=== PATIENT | male | born 1995 | race Caucasian/White ===

== ENCOUNTER 2020-10-01 09:12 | Emergency (ER) | payer BC ==
[2020-10-01 09:27] VITALS: RESP 18; TEMP 99.2
--- NOTE | 2020-10-01 09:54 | ED ---
General Adult HPI - General Chief complaint: Psychiatric Symptoms Stated complaint: anxiety Time Seen by Provider: 10/01/20 09:29 Source: patient, RN notes reviewed Mode of arrival: ambulatory Limitations: no limitations - History of Present Illness Initial comments: Patient is a pleasant 24-year-old male presenting to the emergency Department with anxiety. Patient started taking a supplement called phenbut that he ordered online. Patient feels this is making his symptoms worse and also feels he is down regulating and coming off withdrawal for this. Patient admits to feeling anxious. Patient does have history of problems with anxiety and depression. Patient also feels depressed. No suicidal thoughts. Patient does have racing thoughts and does feel somewhat. However feels somewhat better now that he is in the hospital. Patient did not sleep well last night - Related Data Home Medications Medication Instructions Recorded Confirmed Methadone HCl [Dolophine HCl] 120 mg PO DAILY@1800 10/01/20 10/01/20 Phenibut 250mg 0.5 - 1 cap PO DAILY PRN 10/01/20 10/01/20 Previous Rx's Medication Instructions Recorded hydrOXYzine pamoate [Vistaril] 25 mg PO TID PRN #10 cap 10/01/20 Allergies Allergy/AdvReac Type Severity Reaction Status Date / Time No Known Allergies Allergy Verified 10/01/20 10:48 Review of Systems ROS Statement: Those systems with pertinent positive or pertinent negative responses have been documented in the HPI. ROS Other: All systems not noted in ROS Statement are negative. Constitutional: Denies: fever Eyes: Denies: eye pain ENT: Denies: ear pain Respiratory: Denies: cough Cardiovascular: Denies: chest pain Endocrine: Denies: fatigue Gastrointestinal: Denies: abdominal pain Genitourinary: Denies: dysuria Musculoskeletal: Denies: back pain Skin: Denies: rash Neurological: Denies: weakness Psychiatric: Reports: anxiety, depression Past Medical History Past Surgical History: Orthopedic Surgery Past Psychological History: Anxiety, Bipolar, Depression, Schizophrenia Smoking Status: Vaper Past Alcohol Use History: None Reported Past Drug Use History: Marijuana General Exam Limitations: no limitations General appearance: alert, in no apparent distress Head exam: Present: normocephalic Eye exam: Present: normal appearance Neck exam: Present: normal inspection Respiratory exam: Present: normal lung sounds bilaterally Cardiovascular Exam: Present: regular rate, normal rhythm GI/Abdominal exam: Present: soft. Absent: tenderness Extremities exam: Present: normal inspection Neurological exam: Present: alert Psychiatric exam: Present: normal affect, normal mood Skin exam: Present: normal color Course Vital Signs 10/01/20 09:21 Temperature 99.2 F Pulse Rate 115 H Respiratory 18 Rate Blood Pressure 168/85 O2 Sat by Pulse 98 Oximetry Medical Decision Making - Medical Decision Making Patient was seen by mental health services with plan for discharge. P sychiatrist did recommend Vistaril 25 mg every 8 hours for the next couple of days. Patient reevaluated and receptive to plan. Patient advised close follow- up and only take what is prescribed to him. - Lab Data Lab Results 10/01/20 Range/Units 10:05 Urine Opiates Screen Not Detected (NotDetected) Ur Oxycodone Screen Not Detected (NotDetected) Urine Methadone Screen Detected H (NotDetected) Ur Propoxyphene Screen Not Detected (NotDetected) Ur Barbiturates Screen Not Detected (NotDetected) U Tricyclic Antidepress Not Detected (NotDetected) Ur Phencyclidine Scrn Not Detected (NotDetected) Ur Amphetamines Screen Not Detected (NotDetected) U Methamphetamines Scrn Not Detected (NotDetected) U Benzodiazepines Scrn Not Detected (NotDetected) Urine Cocaine Screen Not Detected (NotDetected) U Marijuana (THC) Screen Detected H (NotDetected) Disposition Clinical Impression: Acute anxiety Disposition: HOME SELF-CARE Condition: Stable Instructions (If sedation given, give patient instructions): Generalized Anxiety Disorder (ED) Additional Instructions: Avoid substances that are not prescribed to you. Please follow-up with primary care physician in the next day or 2 for recheck. Follow-up with mental health services as directed. Return for thoughts of self-harm, worsening symptoms or other concerns. Prescription sent to [facility] pharmacy Prescriptions: hydrOXYzine pamoate [Vistaril] 25 mg PO TID PRN #10 cap PRN Reason: Anxiety Is patient prescribed a controlled substance at d/c from ED?: No Referrals: Luis Manuel Thomason MD [Primary Care Provider] - 1-2 days Time of Disposition: 13:40
[2020-10-01 10:39] LABS: Amphetamine Screen,Urine Not Detected (NotDetected); Barbiturate Screen,Urine Not Detected (NotDetected); Benzodiazepines Screen,Urine Not Detected (NotDetected); Cocaine Screen,Urine Not Detected (NotDetected); Methadone Screen, Urine Detected (NotDetected); Opiate Screen,Urine Not Detected (NotDetected); Oxycodone Screen, Urine Not Detected (NotDetected); Phencyclidine Screen,Urine Not Detected (NotDetected); Tricyclic Antidepressant,Urine Not Detected (NotDetected); Urn Cannabinoid Scrn Detected (NotDetected)
[2020-10-01] MEDS ORDERED: LORazepam 1 MG TAB PO STA (13:15)
[2020-10-01 13:50] VITALS: BP 122/72; PULSE 105
== END 2020-10-01 14:00 | disposition home or self-care (01) ==
LOC: EC 09:12
DX: F41.9 Anxiety disorder, unspecified (principal); F17.290 Nicotine dependence, other tobacco product, uncomplicated
CPT/HCPCS: 80306; 82075; 99284

== ENCOUNTER 2020-10-04 02:11 | Emergency (ER) | payer BC, OTHER ==
[2020-10-04] MEDS ORDERED: hydrOXYzine pamoate 25 MG CAP PO STA (02:27)
[2020-10-04] MEDS ORDERED: LORazepam 2 MG/ML INJ IM STA (02:27)
--- NOTE | 2020-10-04 02:38 | ED ---
General Adult HPI - General Chief complaint: Anxiety Stated complaint: Anxiety Time Seen by Provider: 10/04/20 02:27 Source: patient, family Mode of arrival: ambulatory Limitations: no limitations - History of Present Illness Initial comments: 24 year-old male patient presents to the emergency department today for evaluation of anxiety. Patient states that he was resting a movie this evening when he felt his heart start to race. He states that this made him very anxious so he began to panic. Patient was seen and evaluated here on Thursday for similar complaints. States he recently stopped taking a medication called Phenibut and he believes he is withdrawing from this. Patient states he was given a prescription for Vistaril to take 3 times a day upon discharge. He states this did seem to help but he ran out this evening. States that when he feels anxious he develops tightness to the left side of his chest and a tingly feeling on the left side of his body. Denies any other new medications. States he is eating and drinking. Denies any abdominal pain, nausea, or vomiting. Denies any dizziness or fainting. Patient does take methadone, states he is taking this for the last 5 years without relapses. Patient denies any recent rash, fever, chills, cough, abdominal pain, nausea, vomiting, diarrhea, constipation, back pain, hematuria, dysuria, urinary urgency, urinary frequency, headache, visual changes, or any other complaints. - Related Data Home Medications Medication Instructions Recorded Confirmed Methadone HCl [Dolophine HCl] 120 mg PO DAILY@1800 10/01/20 10/01/20 Phenibut 250mg 0.5 - 1 cap PO DAILY PRN 10/01/20 10/01/20 Previous Rx's Medication Instructions Recorded hydrOXYzine pamoate [Vistaril] 25 mg PO TID PRN #10 cap 10/01/20 hydrOXYzine pamoate [Vistaril] 25 mg PO TID PRN #21 capsule 10/04/20 Allergies Allergy/AdvReac Type Severity Reaction Status Date / Time No Known Allergies Allergy Verified 10/04/20 02:16 Review of Systems ROS Statement: Those systems with pertinent positive or pertinent negative responses have been documented in the HPI. ROS Other: All systems not noted in ROS Statement are negative. Past Medical History Additional Past Medical History / Comment(s): anxiety, depression History of Any Multi-Drug Resistant Organisms: None Reported Past Surgical History: Orthopedic Surgery Past Psychological History: Anxiety, Bipolar, Depression, Schizophrenia Smoking Status: Vaper Past Alcohol Use History: None Reported Past Drug Use History: Marijuana General Exam Limitations: no limitations General appearance: alert, in no apparent distress, other (Physical well- developed, well-nourished adult male patient in no acute distress. Patient does seem to be anxious. Vital signs upon presentation are temperature 98.8F, pulse 146, respirations 24, blood pressure 156/98, pulse ox 99% on room air.) Eye exam: Present: normal appearance, PERRL, EOMI. Absent: scleral icterus, conjunctival injection, periorbital swelling ENT exam: Present: normal exam, normal oropharynx, mucous membranes moist Respiratory exam: Present: normal lung sounds bilaterally. Absent: respiratory distress, wheezes, rales, rhonchi, stridor Cardiovascular Exam: Present: normal rhythm, tachycardia, normal heart sounds. Absent: systolic murmur, diastolic murmur, rubs, gallop, clicks GI/Abdominal exam: Present: soft, normal bowel sounds. Absent: distended, tenderness, guarding, rebound, rigid Neurological exam: Present: alert, oriented X3, CN II-XII intact Psychiatric exam: Present: anxious. Absent: homicidal ideation, suicidal ideation Skin exam: Present: warm, dry, intact, normal color. Absent: rash Course Vital Signs 10/04/20 02:12 Temperature 98.8 F Pulse Rate 146 H Respiratory 24 Rate Blood Pressure 156/98 O2 Sat by Pulse 99 Oximetry EKG Findings - EKG Comments: EKG Findings:: EKG obtained at 12 28 shows sinus tachycardia with a short AK interval. Ventricular rate is 128, AK interval 104, QRS duration 78, QT 402, QTc 586. No evidence of ST elevation or depression. Medical Decision Making - Medical Decision Making 24 year-old male patient presents into the emergency department today for evaluation of increased anxiety and racing heart. Physical examination did reveal soft nontender abdomen. Lungs are clear to auscultation. Did have some tachycardia. EKG showed sinus tachycardia. Patient is obviously anxious during exam. He was given IM dose of Ativan as well as an oral dose of Vistaril. Does have a history of long-standing anxiety and recently stopped taking a supplemental anxiety medication known as phenibut. We did discuss follow-up with psychiatry and primary care physician. He'll be recommended to both of these specialties. Return parameters were discussed in detail. He verbalizes understanding and agrees with this plan. Disposition Clinical Impression: Anxiety, Panic attack Disposition: HOME SELF-CARE Condition: Good Instructions (If sedation given, give patient instructions): Generalized Anxiety Disorder (ED) Additional Instructions: Call the psychiatrist office to make an appointment. Take the vistaril as directed. Follow up with a primary care physician for recheck as soon as possible. Return for any new, worsening, or concerning symptoms. Prescriptions: hydrOXYzine pamoate [Vistaril] 25 mg PO TID PRN #21 capsule PRN Reason: Anxiety Is patient prescribed a controlled substance at d/c from ED?: No Referrals: Luis Manuel Thomason MD [Primary Care Provider] - 1-2 days Israel Olson MD [Medical Doctor] - 1-2 days
[2020-10-04] MEDS ORDERED: ONDANSETRON ODT 4 MG TAB PO STA (02:41)
[2020-10-04 04:02] VITALS: BP 135/75; PULSE 104; RESP 19; TEMP 98.9
== END 2020-10-04 03:40 | disposition home or self-care (01) ==
LOC: EC 02:11
DX: F41.9 Anxiety disorder, unspecified (principal); F41.0 Panic disorder [episodic paroxysmal anxiety]; R00.0 Tachycardia, unspecified; F17.290 Nicotine dependence, other tobacco product, uncomplicated; Z79.891 Long term (current) use of opiate analgesic
CPT/HCPCS: 93005; 99283; 96372; J2060

== ENCOUNTER 2022-08-12 18:29 | Emergency (ER) | payer OTHER ==
[2022-08-12 18:55] VITALS: TEMP 98.2
[2022-08-12] MEDS ORDERED: SODIUM CHLORIDE 0.9% 1,000 ML IV STA (19:32)
--- NOTE | 2022-08-12 19:35 | ED ---
Abdominal Pain HPI - General Chief Complaint: Abdominal Pain Stated Complaint: stomach pain Time Seen by Provider: 08/12/22 19:20 Source: patient, RN notes reviewed Mode of arrival: EMS Limitations: no limitations - History of Present Illness Initial Comments: This is a pleasant 26-year-old male presents to the emergency department complaining of lower abdominal pain. Patient states this is sharp in nature, is also having pressure. Patient states he is having constipation. He states this is worsening. He got a small bowel movement this morning. Patient states he still is passing gas. Some nausea but no vomiting. No definitive fever. States he also ascertains that it hard to urinate. Patient does take methadone after having previous narcotic addiction. No other medications. Pain cramping in nature. Intermittent. No alleviating or exacerbating factors. Patient tried [id number] stool softeners with no relief. Patient also tried one fleets enema. No headache, no fever or chills, no changes in vision or hearing, no sore throat or difficulty with speech, no neck pain, no chest pain or shortness of breath, denies any blood in the stool. No dark tarry stools. No hematuria. No back pain. e, no nausea or vomiting, no changes in urination or bowel movements, no numbness or tingling, no extremity pain, no skin rashes or lesions. Past medical, surgical, social, and family history reviewed. MD Complaint: abdominal pain - Related Data Home Medications Medication Instructions Recorded Confirmed Methadone HCl [Dolophine HCl] 120 mg PO DAILY@1800 10/01/20 10/01/20 Phenibut 250mg 0.5 - 1 cap PO DAILY PRN 10/01/20 10/01/20 Previous Rx's Medication Instructions Recorded hydrOXYzine pamoate [Vistaril] 25 mg PO TID PRN #10 cap 10/01/20 hydrOXYzine pamoate [Vistaril] 25 mg PO TID PRN #21 capsule 10/04/20 Allergies Allergy/AdvReac Type Severity Reaction Status Date / Time No Known Allergies Allergy Verified 08/12/22 18:55 Review of Systems ROS Statement: Those systems with pertinent positive or pertinent negative responses have been documented in the HPI. ROS Other: All systems not noted in ROS Statement are negative. Past Medical History Additional Past Medical History / Comment(s): anxiety, depression, IBS History of Any Multi-Drug Resistant Organisms: None Reported Past Surgical History: Orthopedic Surgery Past Psychological History: Anxiety, Bipolar, Depression, Schizophrenia Smoking Status: Vaper Past Alcohol Use History: None Reported Past Drug Use History: Marijuana General Exam - General Exam Comments Initial Comments: Nontoxic appearing male in no acute distress at the time of seeing him. Normal capillary refill. No mottling. Vital signs reviewed Limitations: no limitations General appearance: alert, in no apparent distress Head exam: Present: atraumatic, normocephalic, normal inspection Eye exam: Present: normal appearance, PERRL, EOMI. Absent: scleral icterus, conjunctival injection, periorbital swelling ENT exam: Present: normal exam, mucous membranes moist Neck exam: Present: normal inspection. Absent: tenderness, meningismus, lymphadenopathy Respiratory exam: Present: normal lung sounds bilaterally. Absent: respiratory distress, wheezes, rales, rhonchi, stridor Cardiovascular Exam: Present: regular rate, normal rhythm, normal heart sounds. Absent: systolic murmur, diastolic murmur, rubs, gallop, clicks GI/Abdominal exam: Present: soft, tenderness (Mild tenderness to left lower quadrant and suprapubic area), normal bowel sounds. Absent: distended, guarding, rebound, rigid Extremities exam: Present: normal inspection, full ROM, normal capillary refill. Absent: tenderness, pedal edema, joint swelling, calf tenderness Back exam: Present: normal inspection Neurological exam: Present: alert, oriented X3, CN II-XII intact Psychiatric exam: Present: normal affect, normal mood Skin exam: Present: warm, dry, intact, normal color. Absent: rash Course Vital Signs 08/12/22 18:50 Temperature 98.2 F Pulse Rate 103 H Respiratory 18 Rate O2 Sat by Pulse 99 Oximetry - Reevaluation(s) Reevaluation #1: 08/12/22 21:58 Patient reevaluated, patient had 600 mL of urine postvoid residual. Patient symptomology most consistent with bowel obstruction from constipation based on his x-ray findings. Patient's blood work actually looked normal. Patient had increasing suprapubic pressure. Going to do a straight catheter to drain the urine. Reevaluation #2: 08/12/22 21:59 Patient very anxious about the procedure. Ativan 1 mg IV push ordered. Magnesium citrate. Milk of magnesia was ordered. Reevaluation #3: 08/12/22 22:30 Patient reevaluated, we had 700 mL on post void residual. Urine was drained. Patient would not tolerate an indwelling Dyer catheter. I believe if we take care of the patient's constipation is urination will be adequate. Medical Decision Making - Medical Decision Making Patient symptomology most consistent with constipation. However patient does have some tenderness in the area of the left lower quadrant. We will evaluate for abdominal pain. Patient be sent home with a bottle of milk of Magnesia. We tried to order viscous Xylocaine for the urethra as the patient had a burning after the straight catheter urine. Patient refuses this. I also want the patient to use a fleets enema as he has used previously. Patient be sent home with milk of magnesia. Patient instructed to repeat a fleets enema at home. Patient was told to return to the ER for any signs or symptoms worsen. Told to return immediately if any other problems arise. All questions answered. Treatment plan discussed. Patient in agreement Every effort has been made to ensure accuracy of this dictation. However, due to the limitations of electronic medical records and dictation devices, errors in charting still occur. The resident Dr. Oscar - Lab Data Result diagrams: 08/12/22 20:11 08/12/22 20:11 Lab Results 08/12/22 08/12/22 08/12/22 Range/Units 20:11 20:11 21:47 WBC 6.6 (3.8-10.6) k/uL RBC 4.48 (4.30-5.90) m/uL Hgb 13.8 (13.0-17.5) gm/dL Hct 39.2 (39.0-53.0) % MCV 87.6 (80.0-100.0) fL MCH 30.7 (25.0-35.0) pg MCHC 35.0 (31.0-37.0) g/dL RDW 11.5 (11.5-15.5) % Plt Count 296 (150-450) k/uL MPV 7.7 Neutrophils % 68 % Lymphocytes % 24 % Monocytes % 5 % Eosinophils % 1 % Basophils % 0 % Neutrophils # 4.5 (1.3-7.7) k/uL Lymphocytes # 1.6 (1.0-4.8) k/uL Monocytes # 0.3 (0-1.0) k/uL Eosinophils # 0.1 (0-0.7) k/uL Basophils # 0.0 (0-0.2) k/uL Sodium 136 L (137-145) mmol/L Potassium 4.2 (3.5-5.1) mmol/L Chloride 99 (98-107) mmol/L Carbon Dioxide 25 (22-30) mmol/L Anion Gap 12 mmol/L BUN 8 L (9-20) mg/dL Creatinine 0.74 (0.66-1.25) mg/dL Est GFR (CKD-EPI)AfAm >90 (>60 ml/min/1.73 sqM) Est GFR (CKD-EPI)NonAf >90 (>60 ml/min/1.73 sqM) Glucose 94 (74-99) mg/dL Calcium 10.0 (8.4-10.2) mg/dL Total Bilirubin 1.0 (0.2-1.3) mg/dL AST 41 (17-59) U/L ALT 36 (4-49) U/L Alkaline Phosphatase 73 (38-126) U/L Total Protein 7.6 (6.3-8.2) g/dL Albumin 5.2 H (3.5-5.0) g/dL Lipase 54 (23-300) U/L Urine Color Yellow Urine Appearance Cloudy (Clear) Urine pH 8.5 H (5.0-8.0) Ur Specific [place] 1.018 (1.001-1.035) Urine Protein Negative (Negative) Urine Glucose (UA) Negative (Negative) Urine Ketones Negative (Negative) Urine Blood Negative (Negative) Urine Nitrite Negative (Negative) Urine Bilirubin Negative (Negative) Urine Urobilinogen <2.0 (<2.0) mg/dL Ur Leukocyte Esterase Trace H (Negative) Urine RBC <1 (0-5) /hpf Urine WBC 1 (0-5) /hpf Amorphous Sediment Few H (None) /hpf Urine Mucus Rare H (None) /hpf - Radiology Data Radiology results: report reviewed, image reviewed I did review the patient's abdominal films myself. Patient has evidence of increased stool burden throughout the colon. There is no evidence of perforation. No bowel dilatation. Nonspecific abdomen otherwise. Stool also noted in the rectal vault. Disposition Clinical Impression: Constipation, Acute urinary retention, History of narcotic addiction Disposition: HOME SELF-CARE Condition: Good Instructions (If sedation given, give patient instructions): Constipation (ED) Additional Instructions: Drink a bottle of milk of magnesia when you get home. Wait a few hours and then do an enema as discussed. Drink plenty of fluids. Follow-up with your regular physician. Call at 8 AM in the morning for follow-up appointment. Follow-up with your regular physician as directed. Return to the ER immediately if any symptoms worsen, new symptoms arise, or any other problems develop. Is patient prescribed a controlled substance at d/c from ED?: No Referrals: Uriah Santa MD [Primary Care Provider] - 1-2 days Time of Disposition: 22:40
[2022-08-12 20:17] LABS: Basophils % (A) 0 %; Eosinophils # (A) 0.1 k/uL (0-0.7); Eosinophils % (A) 1 %; HCT 39.2 % (39.0-53.0); HGB 13.8 gm/dL (13.0-17.5); Lymphocytes # (A) 1.6 k/uL (1.0-4.8); Lymphocytes % (A) 24 %; MCH 30.7 pg (25.0-35.0); MCV 87.6 fL (80.0-100.0); Mean Platelet Volume 7.7; Monocytes # (A) 0.3 k/uL (0-1.0); Monocytes % (A) 5 %; Neutrophils # (A) 4.5 k/uL (1.3-7.7); Neutrophils % (A) 68 %; Platelet Count 296 k/uL (150-450); RBC 4.48 m/uL (4.30-5.90); RDW 11.5 % (11.5-15.5); WBC 6.6 k/uL (3.8-10.6)
[2022-08-12 20:26] LABS: ALT 36 U/L (4-49); AST 41 U/L (17-59); African American GFR (CKD) >90 (>60 ml/min/1.73 sqM); Albumin 5.2 g/dL (3.5-5.0); Alkaline Phosphatase 73 U/L (38-126); Anion Gap 12 mmol/L; Blood Urea Nitrogen 8 mg/dL (9-20); Carbon Dioxide 25 mmol/L (22-30); Chloride 99 mmol/L (98-107); Glucose 94 mg/dL (74-99); Lipase 54 U/L (23-300); Non-African American GFR(CKD) >90 (>60 ml/min/1.73 sqM); Potassium 4.2 mmol/L (3.5-5.1); Sodium 136 mmol/L (137-145); Total Protein 7.6 g/dL (6.3-8.2)
--- NOTE | 2022-08-12 20:38 | XR ---
EXAMINATION TYPE: XR abdomen 2V DATE OF EXAM: 08/12/2022 COMPARISON: NONE HISTORY: Abdominal pain TECHNIQUE: 3 views FINDINGS: No evidence of intestinal obstruction or pneumoperitoneum. Bowel gas pattern is normal. Fec al pattern is fairly normal. No pathologic calcifications over the kidneys. Lung bases are clear. IMPRESSION: Nonacute abdomen.
[2022-08-12] MEDS ORDERED: MAGNESIUM CITRATE 296 ML BOTTLE PO ONE (21:31)
[2022-08-12] MEDS ORDERED: LORazepam 2 MG/ML INJ IV STA (21:57)
[2022-08-12] MEDS ORDERED: MAGNESIUM HYDROXIDE 2,400 MG/10 ML CUP PO PRN (21:58)
[2022-08-12 22:11] LABS: Amorphous Sediment,Urine Few /hpf; Appearance,Urine Cloudy (Clear); Bilirubin,Urine Negative (Negative); Blood,Urine Negative (Negative); Color,Urine Yellow; Glucose,Urine (UA) Negative (Negative); Ketones,Urine Negative (Negative); Leukocyte Esterase,Urine Trace (Negative); Mucus,Urine Rare /hpf; Nitrite,Urine Negative (Negative); PH, Urine 8.5 (5.0-8.0); Protein,Urine Negative (Negative); RBC,Urine <1 /hpf (0-5); Specific Gravity,Urine 1.018 (1.001-1.035); Urobilinogen,Urine <2.0 mg/dL (<2.0); WBC,Urine 1 /hpf (0-5)
[2022-08-12] MEDS ORDERED: LIDOCAINE URO-JET JELLY 2% 5 ML KIT URETHRAL ONE (22:22)
[2022-08-12 23:13] VITALS: BP 133/83; PULSE 109; RESP 16
== END 2022-08-12 23:20 | disposition home or self-care (01) ==
LOC: SUPCPDRO 18:29 → EC 18:29
DX: K59.00 Constipation, unspecified (principal); F11.11 Opioid abuse, in remission; R33.9 Retention of urine, unspecified; F17.290 Nicotine dependence, other tobacco product, uncomplicated
CPT/HCPCS: 36415; 51701; 74019; 80053; 81001; 83690; 85025; 96360; 99284

== ENCOUNTER 2022-09-07 17:14 | Emergency (ER) | payer OTHER ==
[2022-09-07 17:37] VITALS: RESP 16; TEMP 99.8
[2022-09-07] MEDS ORDERED: KETOROLAC 15 MG/ML 1 ML VIAL IVP STA (17:50)
[2022-09-07] MEDS ORDERED: ONDANSETRON 4 MG/2 ML VIAL IVP STA (17:50)
[2022-09-07] MEDS ORDERED: SODIUM CHLORIDE 0.9% 1,000 ML IV STA (17:50)
--- NOTE | 2022-09-07 18:27 | ED ---
Abdominal Pain HPI - General Chief Complaint: Abdominal Pain Stated Complaint: Abd pain,fever Time Seen by Provider: 09/07/22 17:40 Source: patient, family Mode of arrival: ambulatory Limitations: no limitations - History of Present Illness Initial Comments: Patient is a 26-year-old male presenting with chief complaint of generalized abdominal pain. Patient states the pain is been ongoing for the last 2 months. He was seen by his PCP, who performed blood work and ordered him an outpatient CT, however they're unable to get into the CT until later this month. Patient admits to low-grade fever with temperatures ranging from 99-101. States the pain is worse after eating. Patient was evaluated here previously for similar complaint, he was determined to have constipation was advised on stool softeners, patient has been following these instructions and his bowel movements are more regular no, however the pain persists. Admits to nausea and vomiting. No chest pain or difficulty breathing. No diarrhea, hematochezia, melena. No numbness, tingling, weakness. - Related Data Home Medications Medication Instructions Recorded Confirmed Methadone HCl [Dolophine HCl] 120 mg PO DAILY@1800 10/01/20 10/01/20 Phenibut 250mg 0.5 - 1 cap PO DAILY PRN 10/01/20 10/01/20 Previous Rx's Medication Instructions Recorded hydrOXYzine pamoate [Vistaril] 25 mg PO TID PRN #10 cap 10/01/20 hydrOXYzine pamoate [Vistaril] 25 mg PO TID PRN #21 capsule 10/04/20 Dicyclomine [Bentyl] 20 mg PO QID #12 tablet 09/07/22 Ondansetron Odt [Zofran Odt] 4 mg PO Q8HR PRN #12 tab 09/07/22 Allergies Allergy/AdvReac Type Severity Reaction Status Date / Time No Known Allergies Allergy Verified 08/12/22 18:55 Review of Systems ROS Statement: Those systems with pertinent positive or pertinent negative responses have been documented in the HPI. ROS Other: All systems not noted in ROS Statement are negative. Past Medical History Additional Past Medical History / Comment(s): anxiety, depression, IBS History of Any Multi-Drug Resistant Organisms: None Reported Past Surgical History: Orthopedic Surgery Past Psychological History: Anxiety, Bipolar, Depression, Schizophrenia Smoking Status: Vaper Past Alcohol Use History: None Reported Past Drug Use History: Marijuana General Exam Limitations: no limitations General appearance: alert, in no apparent distress Head exam: Present: atraumatic, normocephalic, normal inspection Eye exam: Present: normal appearance, PERRL, EOMI. Absent: scleral icterus, conjunctival injection, periorbital swelling Neck exam: Present: normal inspection Respiratory exam: Present: normal lung sounds bilaterally. Absent: respiratory distress, wheezes, rales, rhonchi, stridor Cardiovascular Exam: Present: regular rate, normal rhythm, normal heart sounds. Absent: systolic murmur, diastolic murmur, rubs, gallop, clicks GI/Abdominal exam: Present: soft, tenderness (diffuse). Absent: distended, guarding, rebound, rigid Neurological exam: Present: alert, oriented X3, CN II-XII intact Psychiatric exam: Present: normal affect, normal mood Skin exam: Present: warm, dry, intact, normal color. Absent: rash Course Vital Signs 09/07/22 09/07/22 17:32 19:37 Temperature 99.8 F H Pulse Rate 65 73 Respiratory 16 16 Rate Blood Pressure 142/70 136/72 O2 Sat by Pulse 98 97 Oximetry Medical Decision Making - Medical Decision Making Patient is a 26-year-old male presenting with chief complaint of generalized abdominal pain is been ongoing for several weeks. On examination there is diffuse tenderness. Lab work shows no leukocytosis or anemia. Coags are WNL. CMP is nonactionable. Amylase and lipase are WNL. Urine is negative for any infectious process or bleeding. CT of the abdomen and pelvis shows no acute intra-abdominal process. Patient has a follow-up appointment with Dr. Valdez scheduled for Thursday. Patient is instructed to follow-up with her in the outpatient setting as there is no acute process found on today's workup. Follow- up with PCP. Report back to ER with any new or worsening symptoms. Discussed return parameters and answered all questions. Patient conveyed verbal understanding and agreed to the plan. I discussed this case in detail with my attending Dr. Rodriguez - Lab Data Result diagrams: 09/07/22 18:09 09/07/22 18:09 Lab Results 09/07/22 09/07/22 09/07/22 Range/Units 18:09 18: 18:09 WBC 5.1 (3.8-10.6) k/uL RBC 4.40 (4.30-5.90) m/uL Hgb 14.5 (13.0-17.5) gm/dL Hct 38.0 L (39.0-53.0) % MCV 86.2 (80.0-100.0) fL MCH 32.9 (25.0-35.0) pg MCHC 38.2 H (31.0-37.0) g/dL RDW 12.2 (11.5-15.5) % Plt Count 287 (150-450) k/uL MPV 7.7 Neutrophils % 58 % Lymphocytes % 35 % Monocytes % 4 % Eosinophils % 1 % Basophils % 0 % Neutrophils # 2.9 (1.3-7.7) k/uL Lymphocytes # 1.8 (1.0-4.8) k/uL Monocytes # 0.2 (0-1.0) k/uL Eosinophils # 0.1 (0-0.7) k/uL Basophils # 0.0 (0-0.2) k/uL PT 10.6 (9.0-12.0) sec INR 1.0 (<1.2) APTT 22.2 (22.0-30.0) sec Sodium (137-145) mmol/L Potassium (3.5-5.1) mmol/L Chloride (98-107) mmol/L Carbon Dioxide (22-30) mmol/L Anion Gap mmol/L BUN (9-20) mg/dL Creatinine (0.66-1.25) mg/dL Est GFR (CKD-EPI)AfAm (>60 ml/min/1.73 sqM) Est GFR (CKD-EPI)NonAf (>60 ml/min/1.73 sqM) Glucose (74-99) mg/dL Plasma Lactic Acid David (0.7-2.0) mmol/L Calcium (8.4-10.2) mg/dL Total Bilirubin (0.2-1.3) mg/dL AST (17-59) U/L ALT (4-49) U/L Alkaline Phosphatase (38-126) U/L Total Protein (6.3-8.2) g/dL Albumin (3.5-5.0) g/dL Amylase (30-110) U/L Lipase (23-300) U/L Urine Color Light Yellow Urine Appearance Clear (Clear) Urine pH 8.0 (5.0-8.0) Ur Specific [place] 1.008 (1.001-1.035) Urine Protein Negative (Negative) Urine Glucose (UA) Negative (Negative) Urine Ketones Negative (Negative) Urine Blood Negative (Negative) Urine Nitrite Negative (Negative) Urine Bilirubin Negative (Negative) Urine Urobilinogen <2.0 (<2.0) mg/dL Ur Leukocyte Esterase Negative (Negative) 09/07/22 09/07/22 Range/Units 18:09 18:09 WBC (3.8-10.6) k/uL RBC (4.30-5.90) m/uL Hgb (13.0-17.5) gm/dL Hct (39.0-53.0) % MCV (80.0-100.0) fL MCH (25.0-35.0) pg MCHC (31.0-37.0) g/dL RDW (11.5-15.5) % Plt Count (150-450) k/uL MPV Neutrophils % % Lymphocytes % % Monocytes % % Eosinophils % % Basophils % % Neutrophils # (1.3-7.7) k/uL Lymphocytes # (1.0-4.8) k/uL Monocytes # (0-1.0) k/uL Eosinophils # (0-0.7) k/uL Basophils # (0-0.2) k/uL PT (9.0-12.0) sec INR (<1.2) APTT (22.0-30.0) sec Sodium 141 (137-145) mmol/L Potassium 3.7 (3.5-5.1) mmol/L Chloride 100 (98-107) mmol/L Carbon Dioxide 29 (22-30) mmol/L Anion Gap 12 mmol/L BUN 7 L (9-20) mg/dL Creatinine 0.75 (0.66-1.25) mg/dL Est GFR (CKD-EPI)AfAm >90 (>60 ml/min/1.73 sqM) Est GFR (CKD-EPI)NonAf >90 (>60 ml/min/1.73 sqM) Glucose 120 H (74-99) mg/dL Plasma Lactic Acid David 1.0 (0.7-2.0) mmol/L Calcium 9.9 (8.4-10.2) mg/dL Total Bilirubin 1.2 (0.2-1.3) mg/dL AST 29 (17-59) U/L ALT 19 (4-49) U/L Alkaline Phosphatase 66 (38-126) U/L Total Protein 8.4 H (6.3-8.2) g/dL Albumin 5.5 H (3.5-5.0) g/dL Amylase 67 (30-110) U/L Lipase 67 (23-300) U/L Urine Color Urine Appearance (Clear) Urine pH (5.0-8.0) Ur Specific [place] (1.001-1.035) Urine Protein (Negative) Urine Glucose (UA) (Negative) Urine Ketones (Negative) Urine Blood (Negative) Urine Nitrite (Negative) Urine Bilirubin (Negative) Urine Urobilinogen (<2.0) mg/dL Ur Leukocyte Esterase (Negative) Disposition Clinical Impression: Abdominal pain Disposition: HOME SELF-CARE Condition: Good Instructions (If sedation given, give patient instructions): Abdominal Pain (ED) Additional Instructions: Follow-up with PCP and GI. Report back to ER with any new or worsening symptoms. Take medication as prescribed. Prescriptions: Dicyclomine [Bentyl] 20 mg PO QID #12 tablet Ondansetron Odt [Zofran Odt] 4 mg PO Q8HR PRN #12 tab PRN Reason: Nausea Is patient prescribed a controlled substance at d/c from ED?: No Referrals: None,Stated [Primary Care Provider] - 1-2 days Time of Disposition: 19:30
[2022-09-07 18:28] LABS: Basophils % (A) 0 %; Eosinophils # (A) 0.1 k/uL (0-0.7); Eosinophils % (A) 1 %; HGB 14.5 gm/dL (13.0-17.5); Lymphocytes # (A) 1.8 k/uL (1.0-4.8); Lymphocytes % (A) 35 %; MCH 32.9 pg (25.0-35.0); MCV 86.2 fL (80.0-100.0); Mean Platelet Volume 7.7; Monocytes # (A) 0.2 k/uL (0-1.0); Monocytes % (A) 4 %; Neutrophils # (A) 2.9 k/uL (1.3-7.7); Neutrophils % (A) 58 %; Platelet Count 287 k/uL (150-450); RDW 12.2 % (11.5-15.5); WBC 5.1 k/uL (3.8-10.6)
[2022-09-07 18:41] LABS: MCHC 38.2 g/dL (31.0-37.0)
[2022-09-07 18:46] LABS: ALT 19 U/L (4-49); AST 29 U/L (17-59); African American GFR (CKD) >90 (>60 ml/min/1.73 sqM); Albumin 5.5 g/dL (3.5-5.0); Alkaline Phosphatase 66 U/L (38-126); Amylase 67 U/L (30-110); Anion Gap 12 mmol/L; Blood Urea Nitrogen 7 mg/dL (9-20); Calcium 9.9 mg/dL (8.4-10.2); Carbon Dioxide 29 mmol/L (22-30); Chloride 100 mmol/L (98-107); Glucose 120 mg/dL (74-99); Lipase 67 U/L (23-300); Non-African American GFR(CKD) >90 (>60 ml/min/1.73 sqM); Potassium 3.7 mmol/L (3.5-5.1); Sodium 141 mmol/L (137-145); Total Bilirubin 1.2 mg/dL (0.2-1.3); Total Protein 8.4 g/dL (6.3-8.2)
[2022-09-07 18:48] LABS: Partial Thromboplastin Time 22.2 sec (22.0-30.0); Prothrombin Time 10.6 sec (9.0-12.0)
--- NOTE | 2022-09-07 18:51 | CT ---
EXAMINATION TYPE: CT abdomen pelvis w con CT DLP: 408.7 mGycm, Automated exposure control for dose reduction was used. DATE OF EXAM: 09/07/2022 6:39 PM COMPARISON: Abdominal radiograph 08/12/2022 CLINICAL INDICATION:Male, 26 years old with history of abdominal pain; pain TECHNIQUE: Axial CT of the abdomen and pelvis. Sagittal and coronal reformats were created on a [employer] workstation. Contrast used:100 mL of Isovue 300 with IV Contrast, Oral contrast used: without Oral Contrast FINDINGS: LOWER CHEST: Unremarkable ABDOMEN LIVER: Unremarkable GALLBLADDER AND BILE DUCTS: Unremarkable. PANCREAS: Unremarkable. SPLEEN: Unremarkable. ADRENAL GLANDS: Unremarkable. KIDNEYS AND URETERS: No evidence of hydronephrosis or renal calculus. The ureters are unremarkable. PELVIS BLADDER: Unremarkable REPRODUCTIVE: Unremarkable. ABDOMEN & PELVIS STOMACH AND BOWEL: Stomach and duodenum are unremarkable No evidence of bowel obstruction. Appendix i s normal. PERITONEUM: No evidence of pneumoperitoneum or free fluid. VASCULATURE: No evidence of aortic aneurysm. MUSCULOSKELETAL: No acute osseous abnormalities LYMPH NODES: No gross evidence for lymphadenopathy. SOFT TISSUE/ABDOMINAL WALL: Unremarkable IMPRESSION: 1. No acute intra-abdominal or intrapelvic process.
[2022-09-07 18:53] LABS: Appearance,Urine Clear (Clear); Bilirubin,Urine Negative (Negative); Blood,Urine Negative (Negative); Color,Urine Light Yellow; Glucose,Urine (UA) Negative (Negative); Ketones,Urine Negative (Negative); Leukocyte Esterase,Urine Negative (Negative); Nitrite,Urine Negative (Negative); Protein,Urine Negative (Negative); Specific Gravity,Urine 1.008 (1.001-1.035); Urobilinogen,Urine <2.0 mg/dL (<2.0)
[2022-09-07 19:38] VITALS: BP 136/72; PULSE 73
== END 2022-09-07 19:45 | disposition home or self-care (01) ==
LOC: EC 17:14
DX: R10.84 Generalized abdominal pain (principal); F41.9 Anxiety disorder, unspecified; F31.9 Bipolar disorder, unspecified; F17.290 Nicotine dependence, other tobacco product, uncomplicated; F12.90 Cannabis use, unspecified, uncomplicated; Z79.899 Other long term (current) drug therapy
CPT/HCPCS: 36415; 80053; 82150; 83605; 83690; 85025; 85610; 85730; 81003; 74177; 99284; 96374; 96375; 96361; J2405; J1885; Q9967

== ENCOUNTER 2023-02-04 08:22 | Day surgery (SDC) | payer OTHER ==
[2023-01-30 16:00] VITALS: BMI 17.6
[~2023-02-04 08:22] MED LIST: LACTATED RINGERS 1,000 ML IV SCH; LIDOCAINE 1% (10MG/ML) FOR IV START INTRADERMA PRN
[2023-02-04] MEDS ORDERED: LACTATED RINGERS 1,000 ML IV ONE (08:41)
[2023-02-04 08:43] VITALS: TEMP 97
[2023-02-04] MEDS ORDERED: ONDANSETRON 4 MG/2 ML VIAL ONE ×2 (08:48→09:37)
[2023-02-04] MEDS ORDERED: ONDANSETRON 4 MG/2 ML VIAL IVP ONE (08:53)
[2023-02-04] MEDS ORDERED: PROPOFOL 10 MG/ML 20 ML VIAL IV ONE (08:57)
--- NOTE | 2023-02-04 09:16 | P.PCN ---
Date of Procedure: 02/04/23 Procedure(s) Performed: Brief history: Patient is a pleasant 27-year-old white male scheduled for an elective upper endoscopy as well as colonoscopy as a part of evaluation of left-sided abdominal pain, change in bowel habits for the last several years duration. His symptoms are gradually getting worse for the last 3 months. He has chronic persistent nausea, emesis. Procedure performed: Esophagogastroduodenoscopy with biopsy Attempted Colonoscopy up to sigmoid colon Preoperative diagnosis: Nausea, left-sided abdominal pain Change in bowel habits Anesthesia: MAC Procedure: After informed consent was obtained from the patient was brought into the endoscopy unit and IV sedation was administered by anesthesia under continuous monitoring. Initially upper endoscopy was done. The Olympus GF 160 video endoscope was inserted inserted into the mouth and esophagus intubated without any difficulty and was gradually advanced into the stomach and duodenum and carefully examined. The bulb and second part of the duodenum appeared normal. Biopsies were done from the duodenum to rule out celiac disease. The scope was then withdrawn into the stomach adequately insufflated with air and upon careful examination the antrum had mild mottling of the mucosa and biopsies were done from this area. Mucosa of the body, cardia and fundus appeared normal. The scope was then withdrawn into the esophagus. Small hiatal hernia noted. The GE junction was located at 39 cm to the incisors. It appeared regular with no erythema erosions or ulcerations. Rest of the esophagus appeared normal. Patient tolerated the procedure well. At this time the patient continued to remain sedation. Initial digital rectal examination was normal. Olympus CF 160 video colonoscope was then inserted into the rectum and gradually advanced to the sigmoid colon where there was solid prep encountered and hence the procedure was terminated. Mucosa of the sigmoid colon and rectum appeared normal. Retroflexion was performed in the rectum and no lesions were noted. Patient tolerated the procedure well. Impression: 1. Upper endoscopy revealed mild antral gastritis and a small hiatal hernia 2. Colonoscopy revealed extremely poor prep and the scope was advanced into the sigmoid: An then terminated. Recommendations: Findings of this examination were discussed with the patient as well as his family. He was advised to follow with the biopsy results. He will continue with Linzess daily and continue with a high-fiber diet. Recommend repeat screening colonoscopy with a two-day prep at a later date
[2023-02-04 09:49] VITALS: BP 122/87; PULSE 106; RESP 18
[2023-02-04] MEDS ORDERED: KETOROLAC 15 MG/ML 1 ML VIAL ONE (10:13)
== END 2023-02-04 10:52 | disposition home or self-care (01) ==
LOC: ORWHC2ENDO 08:22
PROVIDERS: ATTEND Internal Medicine Gastroenterology
DX: K29.70 Gastritis, unspecified, without bleeding (principal); K44.9 Diaphragmatic hernia without obstruction or gangrene; F41.9 Anxiety disorder, unspecified; F32.A Depression, unspecified; F12.90 Cannabis use, unspecified, uncomplicated; K58.9 Irritable bowel syndrome, unspecified; Z79.899 Other long term (current) drug therapy
CPT/HCPCS: 88305; 43239; 45330; J2405; J1885; J2704; J1790

== ENCOUNTER 2023-09-23 08:42 | Day surgery (SDC) | payer OTHER ==
[~2023-09-23 08:42] MED LIST changes: +MIDAZOLAM 2 MG/2 ML VIAL IV PRN
[2023-09-23 09:24] VITALS: TEMP 98.4
[2023-09-23] MEDS ORDERED: PROPOFOL 10 MG/ML 20 ML VIAL IV ONE (09:45)
[2023-09-23] MEDS ORDERED: LIDOCAINE 1% INJ 10MG/ML (20 ML MDV) ONE (09:45)
[2023-09-23] MEDS ORDERED: MIDAZOLAM 2 MG/2 ML VIAL ONE (09:45)
--- NOTE | 2023-09-23 09:58 | P.PCN ---
Date of Procedure: 09/23/23 Procedure(s) Performed: BRIEF HISTORY: Patient is a 27-year-old pleasant white male scheduled for an elective colonoscopy as a part of recent abdominal pain and change in bowel habits. PROCEDURE PERFORMED: Colonoscopy. PREOPERATIVE DIAGNOSIS: Left-sided abdominal pain and change in bowel habits. IV sedation per Anesthesia. PROCEDURE: After informed consent was obtained, the patient, was brought into the endoscopy unit. IV sedation was administered by Anesthesia under continuous monitoring. Digital rectal examination was normal. Initially the Olympus CF-160 flexible video colonoscope was then inserted in the rectum, gradually advanced into the cecum without any difficulty. Careful examination was performed as the scope was gradually being withdrawn. Ileocecal valve and the appendiceal orifice were visualized and appeared normal. Prep was excellent. Mucosa of the cecum, ascending colon, transverse colon, descending colon, sigmoid colon, and rectum appeared normal. Retroflexion was performed in the rectum and no lesions were seen. The patient tolerated the procedure well. IMPRESSION: Normal-appearing colon from rectum to cecum no evidence of colorectal neoplasia. . RECOMMENDATIONS: Findings of this examination were discussed with the patient as well as his family. He was advised to be a high-fiber diet and take fiber supplements a regular basis. Continue with linzess and follow up in office in 3-4 weeks..
[2023-09-23] MEDS ORDERED: ONDANSETRON 4 MG/2 ML VIAL IVP ONE (10:26)
[2023-09-23] MEDS ORDERED: ONDANSETRON 4 MG/2 ML VIAL ONE (10:27)
[2023-09-23] MEDS ORDERED: HYDROmorphone 0.5 MG/0.5 ML SYRINGE IVP ONE (10:36)
[2023-09-23 12:15] VITALS: BP 132/76; PULSE 78; RESP 18
== END 2023-09-23 13:06 | disposition home or self-care (01) ==
LOC: ORWHC2ENDO 08:42
PROVIDERS: ATTEND Internal Medicine Gastroenterology
DX: R19.4 Change in bowel habit (principal); K58.9 Irritable bowel syndrome, unspecified; F41.9 Anxiety disorder, unspecified; F32.A Depression, unspecified; F17.210 Nicotine dependence, cigarettes, uncomplicated; Z79.899 Other long term (current) drug therapy
CPT/HCPCS: 45378; J2250; J2405; J2001; J2704; J1170

== ENCOUNTER 2024-06-18 22:25 | Emergency (ER) | payer OTHER ==
[~2024-06-18 22:25] MED LIST changes: -LACTATED RINGERS 1,000 ML IV SCH; -LIDOCAINE 1% (10MG/ML) FOR IV START INTRADERMA PRN; +LIDOCAINE 2% URO-JET JELLY 5 ML KIT ONE; -MIDAZOLAM 2 MG/2 ML VIAL IV PRN
[2024-06-19] MEDS ORDERED: traMADol 50 MG STARTER PACK 3 TAB BTL ONE (02:31)
[2024-06-19] MEDS ORDERED: KETOROLAC 15 MG/ML 1 ML VIAL ONE (02:31)
== END 2024-06-19 02:20 | disposition home or self-care (01) ==
LOC: EC 22:25
DX: T83.098A Other mechanical complication of other urinary catheter, initial encounter (principal)
CPT/HCPCS: 51798; 96374; 99283